=== PATIENT | male | born 1975 | race Two or more races ===

== ENCOUNTER 2016-11-12 04:13 | Emergency (ER) | payer BC ==
[~2016-11-12] VITALS: Ht 177.8 cm; Wt 81.6 kg
[2016-11-12 04:18] VITALS: BP 120/73
[2016-11-12] MEDS ORDERED: SUMATRIPTAN SUCCINATE 6 MG/0.5 ML VIAL SQ ONE ×2 (04:27→04:30)
[2016-11-12] MEDS ORDERED: METOCLOPRAMIDE HCL 10 MG/2 ML VIAL ONE (04:27)
[2016-11-12] MEDS ORDERED: IV SET PRIMARY PUMP SET 1 EA INFUS.SET MC ONE (04:27)
[2016-11-12] MEDS ORDERED: IV NS 0.9% 1,000 ML ONE (04:27)
[2016-11-12] MEDS ORDERED: IV NS 0.9% 1,000 ML BAG IV ONE (04:30)
[2016-11-12] MEDS ORDERED: METOCLOPRAMIDE HCL 10 MG/2 ML VIAL IV ONE (04:30)
--- NOTE | 2016-11-12 04:40 | NUR ---
MEDICATED PT ORDERED
--- NOTE | 2016-11-12 05:43 | NUR ---
IV removed. Catheter intact and site benign. Pressure and 4x4 applied to site. No bleeding noted. Patient discharged to home in stable condition. Written and verbal after care instructions given. Patient verbalizes understanding of instruction. Patient is ambulatory with steady gait, no further complaints.
== END 2016-11-12 06:09 | disposition home or self-care (01) ==
LOC: ER 04:14
DX: G43.909 Migraine, unspecified, not intractable, without status migrainosus (principal)
CPT/HCPCS: A4606; J2765; J3030; J7030; Z7610